=== PATIENT | male | born 1995 | race Caucasian/White ===

== ENCOUNTER 2017-07-30 05:45 | Emergency (ER) | payer OTHER, SELFPAY ==
[2017-07-30] MEDS ORDERED: Lorazepam 2 MG/ML VIAL ONE (05:51)
--- NOTE | 2017-07-30 08:26 | RAD ---
CHEST 1 VIEW: HISTORY: Past medical history of hemoptysis. Chest pain. COMPARISON: 02/10/17. FINDINGS: Normal cardiac silhouette. The pulmonary vessels and hilum are normal. Costophrenic angles are joe r. No consolidation or mass. No pneumothorax or osseous abnormality. IMPRESSION: 1. No acute cardiopulmonary process. 2. Visualized costophrenic angles are clear. Small effusions could easily be obscured as the inferi ormost aspect of both costophrenic angles are excluded on this portable radiograph. POS: OFF
== END 2017-07-30 06:53 | disposition home or self-care (01) ==
LOC: SCSER 05:45
DX: F41.9 Anxiety disorder, unspecified (principal); J45.909 Unspecified asthma, uncomplicated; I10 Essential (primary) hypertension
CPT/HCPCS: 71045; 93005; 96372; J2060

== ENCOUNTER 2017-08-21 10:31 | Emergency (ER) | payer SELFPAY ==
[2017-08-21] MEDS ORDERED: Ketorolac Tromethamine 30 MG/ML VIAL ONE (10:59)
[2017-08-21] MEDS ORDERED: Cyclobenzaprine 10 MG TAB ONE (11:56)
[2017-08-21] MEDS ORDERED: Dexamethasone 10 MG/ML VIAL ONE (11:56)
--- NOTE | 2017-08-21 12:00 | CT ---
CT LUMBAR SPINE WITHOUT CONTRAST: Date: 08/21/17 HISTORY: Pain. Pain radiates down legs. COMPARISON: None. TECHNIQUE: CT lumbar spine is performed without contrast. Sagittal and coronal reformatted images are submitted for interpretation. FINDINGS: Straightening of normal lumbar lordosis may be due to patient positioning or muscle spasm. There is n o evidence of fracture. The spinous processes and transverse processes are intact. Visualized solid o rgans are unremarkable. No retroperitoneal mass, lymphadenopathy, or hematoma. Aorta and psoas muscle s are unremarkable. Limited evaluation of the contents of the central spinal canal and neural foramin a by technique. T12-L1: No significant central canal stenosis. Neural foramina are patent bilaterally. L1-L2: Though there is loss of disc space height, there is no significant central canal stenosis or neural f oraminal narrowing. L2-L3: Though there is loss of disc space height, no significant central canal stenosis or foraminal narrowi ng. L3-L4: Mild loss of disc space height. No significant posterior disc abnormality. Neural foramina are patent bilaterally. L4-L5: Mild loss of disc space height. No significant central canal stenosis. Mild bilateral foraminal narro wing. L5-S1: No significant loss of disc space height. There is generalized disc bulge with minimal encroachment u garland the ventral thecal sac and left subarticular zone. There is minimal mass effect without obscurati on of the traversing left S1 nerve root. No significant stenosis of the right subarticular zone. No s ignificant stenosis of the traversing right S1 nerve root. Mild to moderate bilateral neural foramina l narrowing predominantly due to disc material. IMPRESSION: 1. Mild to moderate bilateral foraminal narrowing. 2. Though there is loss of disc space height throughout the lumbar spine, there is no significant ce ntral canal stenosis. Mild narrowing of the left subarticular zone at L5-S1. Disc material abuts, but does not obscure the traversing left S1 nerve root. POS: [facility]
== END 2017-08-21 13:11 | disposition home or self-care (01) ==
LOC: SCSER 10:31
DX: M54.40 Lumbago with sciatica, unspecified side (principal); I10 Essential (primary) hypertension; J45.909 Unspecified asthma, uncomplicated
CPT/HCPCS: 72131; 96361; 96374; 96375; J1100; J1885

== ENCOUNTER 2017-10-02 08:02 | Outpatient (CLI) | payer OTHER ==
--- NOTE | 2017-10-02 11:47 | MRI ---
LUMBAR SPINE MRI WITHOUT CONTRAST: DATE: 10/02/17. COMPARISON: None. HISTORY: Back strain, pain, radiculopathy. TECHNIQUE: Multiplanar multisequence MR imaging of the lumbar spine obtained without contrast. FINDINGS: The sagittal STIR imaging demonstrates no focal area of osseous marrow edema. No anterolisthesis or retrolisthesis is noted. On the basis of 5 lumbar-type vertebral bodies, conus medullaris terminates in the L1-2 region. T12-L1: Intervertebral disk height and signal intensities within normal limits with no significant c entral canal or neural foraminal stenosis. L1-2: Vertebral disk height and signal intensity within normal limits with no central canal or neura l foraminal stenosis. L2-3: Intervertebral disk height and signal intensity appears within normal limits with no significa nt central canal or neural foraminal stenosis. L3-4: Intervertebral disk height and signal intensity within normal limits with no significant centr al canal or neural foraminal stenosis. L4-5: Intervertebral disk height and signal intensity within normal limits with no significant centr al canal or neural foraminal stenosis. L5-S1: There is partial disk desiccation. There is mild disk space narrowing. There is minimal dis k bulge. No significant central canal stenosis. Minimal left neural foraminal stenosis. No right n eural foraminal stenosis. The visualized retroperitoneal structures appear grossly unremarkable. IMPRESSION: Mild degenerative disk disease at L5-S1. No severe central canal or neural foraminal stenosis. POS: [facility]
== END 2017-10-02 08:03 | disposition home or self-care (01) ==
LOC: SCSMRI 08:02
PROVIDERS: ATTEND Family Medicine
DX: S39.012D Strain of muscle, fascia and tendon of lower back, subsequent encounter (principal); M51.37 Other intervertebral disc degeneration, lumbosacral region
CPT/HCPCS: 72148